=== PATIENT | female | born 1985 | race African-American/Black ===

== ENCOUNTER 2017-04-25 18:42 | Inpatient (IN) | payer OTHER ==
--- NOTE | 2017-04-25 19:57 | HP ---
Past Medical History - Admission History of Present Illness: 31 yo @ 40 4/7 wks by LMP consistent with first trimester ultrasound, EDC 04/21/2017) complicated by: 1. 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 Mild anemia - last CBC 02/21/17, 10.3/30.8 Patient presents with chief complaint of leakage of fluid at approximately 1545. She reports mild contractions, no vaginal bleeding. She was found to have + pooling and nitrazine positive. She endorses movement. History Source: Patient Limitations to Obtaining History: No Limitations - Past Medical History Cardiovascular: No: HTN Pulmonary: No: Asthma ...: 1 ...EDC by Sono: 04/21/17 Heme/Onc: Yes: Anemia Endocrine: Yes: Other (PCOS) - Past Surgical History Past Surgical History: Yes: Tonsillectomy Hx Myomectomy: No Hx Transabdominal Cerclage: No - Smoking History Have you smoked in the past 12 months: No - Alcohol/Substance Use Hx Alcohol Use: No History of Substance Use: reports: None - Social History History of Recent Travel: No Home Medications - Allergies Allergies/Adverse Reactions: Allergies Allergy/AdvReac Type Severity Reaction Status Date / Time No Known Allergies Allergy Verified 04/25/17 19:57 Family Disease History - Family Disease History Family History: Denies Review of Systems - Review of Systems Constitutional: reports: No Symptoms Neck: reports: No Symptoms Cardiovascular: reports: No Symptoms Respiratory: reports: No Symptoms Gastrointestinal: reports: No Symptoms Musculoskeletal: reports: No Symptoms Integumentary: reports: No Symptoms Neurological: reports: No Symptoms Endocrine: reports: No Symptoms Hematology/Lymphatic: reports: No Symptoms Psychiatric: reports: No Symptoms Physical Exam - Maternity Constitutional: Yes: Well Nourished, No Distress, Calm Neck: Yes: Supple Cardiovascular: Yes: Regular Rate and Rhythm Lungs: Clear to auscultation - Abdominal Exam/OB Number of Fetuses: Single Presentation: Vertex Contractions: Yes Regularity: Regular Intensity: Mild Heart Rate (range): 130 Category: I Accelerations: Non-Uniform Decelerations: None - Vaginal Exam/OB Vaginal Bleediing: No Speculum Exam: Yes Dilatation (cm): 3 Effacement (%): 70 Amniotic Membrane Status: Ruptured Nitrazine Test: Positive Amniotic Fluid: Yes: Clear Station: -2 - Physical Exam Psychiatric: Yes: Alert, Oriented Hemorrhage Risk Assessment - Risk Factors Medium Risk Factors: Yes: None High Risk Factors: Yes: None Risk Score: 1 Risk Level: Medium Risk Imaging - Results Ultrasound: Report Reviewed (04/21/17, EFW 3984g/8-12, (74%),BPP 04/10, LEONARD 12) Assessment/Plan 31 yo @ 40 wks, SROM 1. Admit to L&D 2. Consents reviewed and signed 3. GBS negative 4. Patient comfortable, will offer epidural on request 5. Reviewed currently SROM, mild contractions. Discussed possible augmentation of labor. Reviewed risks including uterine tachysystole, heart rate changes, failure, delivery. patient expressed understanding. Will continue expectant management.
[2017-04-25] MEDS ORDERED: BUTORPHANOL TARTRATE 1 MG/ML VIAL IVPB ONE (20:07)
[2017-04-25] MEDS ORDERED: PROMETHAZINE HCL 25 MG/1 ML VIAL IVPUSH ONE (20:07)
[2017-04-25] MEDS ORDERED: ELECTROLYTE-148 SOLN 1,000 ML IV SCH (20:15)
[2017-04-25 20:49] VITALS: BMI 30.4
[2017-04-25 21:01] LABS: BASOPHIL 0.3 % (0-2.0); MCH 31.9 pg (25.7-33.7); MEAN PLT VOLUME 8.8 fl (7.5-11.1); NEUTROPHILS 76.5 % (42.8-82.8); PLATELET COUNT 264 K/MM3 (134-434); RDW 14.8 % (11.6-15.6); WHITE BLOOD COUNT 10.9 K/mm3 (4.0-10.0)
[2017-04-25 21:23] LABS: INR 0.98 (0.82-1.09); PROTHROMBIN TIME (PATIENT) 10.8 SEC (9.98-11.88)
[2017-04-25 21:26] LABS: ACTIVATED PTT 29.6 SECONDS (26.9-34.4)
[2017-04-25 21:28] LABS: ANION GAP 12 (8-16); CALCIUM 9.1 mg/dL (8.5-10.1); CO2 23 mmol/L (21-32); CREATININE 0.6 mg/dL (0.55-1.02); GLUCOSE,RANDOM 97 mg/dL (74-106)
[2017-04-25 22:19] LABS: HIV 1 & 2 AB NEGATIVE; HIV 1 AGp24 NEGATIVE
[2017-04-26] MEDS ORDERED: OXYTOCIN 15 UNITS/ LR 250 ML 250 ML IVPB SCH (03:00)
[2017-04-26] MEDS ORDERED: FENTANYL/BUPIVACAINE/NS/PF - PCEA - 50 ML DISP.SYRIN EP SCH ×3 (05:30→10:29)
[2017-04-26] MEDS ORDERED: AMPICILLIN - 100 ML IVPB ONE (09:00)
[2017-04-26] MEDS ORDERED: ACETAMINOPHEN 325 MG TABLET (FP) PO ONE (09:00)
[2017-04-26] MEDS: ELECTROLYTE-148 SOLN 1,000 ML IV SCH ×2 (09:40→11:28)
--- NOTE | 2017-04-26 09:47 | PN ---
Ante-Partal Exam - Subjective Subjective: Reports pain not controlled with epidural s/p MORIN that improved with tylenol, reports mild neck soreness Vital Signs: Vital Signs Temperature 99.6 F 04/26/17 08:00 Pulse Rate 120 H 04/26/17 09:15 Respiratory Rate 20 04/26/17 09:15 Blood Pressure 138/74 04/26/17 09:15 O2 Sat by Pulse Oximetry (%) 98 04/26/17 09:15 Bleeding: No Headache: Yes Visual changes: No Right upper quadrant pain: No - Contractions Contractions: Yes Regularity: Regular Intensity: Moderate Monitor Mode: External - Exam during Labor Heart Rate: 140 Variability: Moderate Category: I Monitor Accelerations: Present Monitor Decelerations: None Exam: Vaginal Dilatation (cm): 5 Effacement (%): 100 Amniotic Membrane Status: Ruptured Amniotic Fluid: Clear Station: -1 - Intrapartum Hemorrhage Risk Medium Risk Factors: None High Risk Factors: None Risk Score: 0 Risk Level: Low Risk - Assessment/Plan Assessment/Plan: 31 yo @ 40+ wks, active labor 1. will continue augmentation with pitocin 2. Maternal tachycardia - mild temperature elevation, s/p rupture > 17 hours Will continue to monitor for signs of infection 3. GBS negative 4. Category I FHT 5. Will continue expectant management.
--- NOTE | 2017-04-26 10:43 | PN ---
Progress Note (short form) - Note Progress Note: Patient with persistent tachycardia, s/p 500cc fluid bolus, afebrile, BP and O2 sat 98% Discussed with anesthesia, not likely secondary to epidural placement Will order EKG Will consult cardiology
[2017-04-26] MEDS ORDERED: AMPICILLIN - 100 ML IVPB SCH (13:00)
--- NOTE | 2017-04-26 13:14 | PN ---
Progress Note (short form) - Note Progress Note: VE: FD/100%/+1 FHR: 150's Moderate variability, + accels, no desels TOCO: regular ctx Q 3min on Pitocin drip of 2mU/min Will turn off the epidural, since she has very little sensation She is known to have HSV 2, she has been on Valtrex since 35weeks and has no lesions
[2017-04-26] MEDS ORDERED: WITCH HAZEL 50% (TUCKS) 40 PAD/JAR PAD TP PRN (14:25)
[2017-04-26] MEDS ORDERED: BISACODYL 10 MG SUPP.RECT RC PRN (14:25)
[2017-04-26] MEDS ORDERED: BENZOCAINE 28 GM HEMORRHOIDAL OINTMENT TP PRN (14:25)
[2017-04-26] MEDS ORDERED: METHYLERGONOVINE MALEATE 0.2 MG/1 ML AMP IM PRN (14:25)
[2017-04-26] MEDS ORDERED: BENZOCAINE 20% 57 GM BOTTLE TP PRN (14:25)
[2017-04-26] MEDS ORDERED: ACETAMINOPHEN 325 MG TABLET (FP) PO PRN (14:25)
--- NOTE | 2017-04-26 14:25 | PN ---
Delivery - Delivery Vaginal Delivery: Spontaneous Type of Anesthesia: Epidural Episiotomy/Laceration: Periurethral Extnsion/lac, 1st degree Delivery, Single - Stages of Labor Date 1st Stage Initiatied: 04/25/17 Time 1st Stage Initiated: 19:00 Date 2nd Stage Initiated: 04/26/17 Time 2nd Stage Initiated: 13:00 Date of Delivery: 04/26/17 Time of Delivery: 13:52 Date Placenta Delivered: 04/26/17 Time Placenta Delivered: 13:55 Placenta: Yes: Spontaneous - Condition of Director Of Casework Department/Service Car Driver Present: No Gender: Male Weight: 8 lb 2 oz Position: OA - 1 Minute Total Score: 9 5 Minutes Total Score: 9 - Feeding Plan Initial Plan: Exclusive throughout hospitalization Benefits of Exclusively reinforced: Yes Remarks - Remarks Remarks: Uncomplicated delivery of head and shoulders, cord around the neck x 1, reduced Right periuretheral and right vaginal tear repaired with 2-0 Chromic
[2017-04-26] MEDS ORDERED: D5W-LR W/ 20 UNITS OXYTOCIN 1,000 ML IV SCH (14:30)
--- NOTE | 2017-04-26 14:40 | EKG ---
Test Reason : Blood Pressure : / mmHG Vent. Rate : 123 BPM Atrial Rate : 123 BPM P-R Int : 154 ms QRS Dur : 074 ms QT Int : 314 ms P-R-T Axes : 051 069 001 degrees QTc Int : 449 ms SINUS TACHYCARDIA Confirmed by STEPHEN PEREIRA MD ([id number]) on 04/26/2017 2:40:38 PM Referred By: Estrada MANTILLA Confirmed By:STEPHEN PEREIRA MD
[2017-04-26] MEDS: FERROUS SO4 325 MG TABLET (FP) PO SCH (17:07)
[2017-04-26] MEDS: ACETAMINOPHEN/CAFFEINE/BUTALBITAL 1 TAB PO PRN ×2 (18:30→23:04)
--- NOTE | 2017-04-26 21:32 | CON.CARD ---
Cardiology Consult (text) - Consultation Consultation Note: CC: tachycardia 31 y o with h/o pcos, mild anemia here for delivery, labor complicated by tachycardia. patient noted to be tachycardic since this morning after having received epidural. Patient was comfortable from the standpoint of pain/discomfort but notes she was anxious from sensation of the numbness traveling up her body. + sensation of heart racing, no dizziness, cp. EKG consistent with sinus tachycardia. Has vaginal delivery without complications. Epidural now removed. Tachycardia slightly better. patient currently comfortable and free of cp, sob, palps, dizziness. + fatigue s/p delivery. patient had uncomplicated . no recent new sob, orthopnea, pnd, le edema. denies recent f/c/s, cough, congestion, rashes, visual disturbances, n/v/d. + gerd symptoms during . pmhx/pshx: per hpi family hx: no h/o katia- cardiomyopathy social hx: no tob, etoh or illicits ros: per hpi Ambulatory Orders Vitamins (Sjr) - 1 tab PO DAILY 04/25/17 Ascorbic Acid/Ascorbate Sodium [Vitamin C 500 mg Wafer] 500 mg PO DAILY Ferrous Sulfate 325 mg PO DAILY 04/26/17 Current Medications Acetaminophen (Tylenol -) 650 mg PO Q3H PRN PRN Reason: PAIN Last Admin: 04/26/17 14:45 Dose: 650 mg Acetaminophen/Butalbital/Caffeine (Fioricet -) 2 tablet PO Q4H PRN Last Admin: 04/26/17 18:30 Dose: 2 tablet Benzocaine (Americaine Ointment -) 1 applic TP PRN PRN PRN Reason: PAIN Benzocaine (Americaine 20% Colton -) 1 spray TP PRN PRN PRN Reason: PAIN Bisacodyl (Dulcolax Suppository -) 10 mg RC PRN PRN PRN Reason: CONSTIPATION Fentanyl/Bupivacaine/Sodium Chlor (Bupivicaine 0.125%/Fentanyl 2mcg/Ml Pcea -) 50 ml EP ASDIR ARBEN PRN Reason: Protocol Ferrous Sulfate (Feosol -) 325 mg PO BIDWM ARBEN Last Admin: 04/26/17 17:07 Dose: 325 mg Parenteral Electrolytes (Plasma-Lyte 148 -) 1,000 mls @ 150 mls/hr IV ASDIR ARBEN Last Admin: 04/26/17 11:28 Dose: 150 mls/hr Dextrose/Lactated Ringer's (Pitocin 20 Units In D5-Lr -) 1,000 mls @ 125 mls/ hr IV ASDIR [facility] Stop: 04/26/17 22:29 Last Admin: 04/26/17 13:55 Dose: 125 mls/hr Ibuprofen (Motrin -) 600 mg PO Q4H PRN PRN Reason: PAIN Lidocaine HCl (Xylocaine 2% Jelly) 1 applic TP DAILY PRN Methylergonovine Maleate (Methergine Injection -) 0.2 mg IM Q4H PRN PRN Reason: EXCESSIVE BLEEDING (L&D) Multivit/Folic Acid/Iron ( Vitamins (Sjr) -) 1 tab PO DAILY ARBEN Senna/Docusate Sodium (Pericolace -) tablet PO HS PRN PRN Reason: CONSTIPATION Witch Cee/Glycerin (Tucks Pads -) 1 pad TP PRN PRN PRN Reason: PAIN Vital Signs - 24 hr 04/25/17 04/25/17 04/26/17 22:00 23:00 01:00 Temperature 99.3 F 98.3 F Pulse Rate 97 H 98 H 88 Respiratory 20 20 18 Rate Blood Pressure 126/72 129/75 116/80 O2 Sat by Pulse Oximetry (%) 04/26/17 04/26/17 04/26/17 03:00 05:00 05:30 Temperature 97.7 F 98.1 F Pulse Rate 87 68 95 H Respiratory 20 20 20 Rate Blood Pressure 120/77 117/68 112/82 O2 Sat by Pulse 100 Oximetry (%) 04/26/17 04/26/17 04/26/17 05:35 05:40 05:45 Temperature Pulse Rate 113 H 100 H 112 H Respiratory 20 20 20 Rate Blood Pressure 91/48 102/62 92/50 O2 Sat by Pulse Oximetry (%) 04/26/17 04/26/17 04/26/17 05:50 05:55 06:00 Temperature 98.1 F Pulse Rate 123 H 114 H Respiratory 18 20 Rate Blood Pressure 85/40 103/54 O2 Sat by Pulse Oximetry (%) 04/26/17 04/26/17 04/26/17 06:15 06:30 07:00 Temperature 98.3 F Pulse Rate 116 H 131 H 110 H Respiratory 20 20 20 Rate Blood Pressure 103/52 133/70 105/55 O2 Sat by Pulse Oximetry (%) 04/26/17 04/26/17 04/26/17 07:15 07:30 07:45 Temperature Pulse Rate 115 H 120 H 115 H Respiratory 20 20 20 Rate Blood Pressure 120/64 123/63 125/68 O2 Sat by Pulse Oximetry (%) 04/26/17 04/26/17 04/26/17 08:00 08:15 08:30 Temperature 99.6 F Pulse Rate 115 H 120 H 120 H Respiratory 20 20 20 Rate Blood Pressure 118/66 117/70 118/67 O2 Sat by Pulse Oximetry (%) 04/26/17 04/26/17 04/26/17 08:45 09:00 09:15 Temperature Pulse Rate 120 H 125 H 120 H Respiratory 20 20 20 Rate Blood Pressure 119/69 135/80 138/74 O2 Sat by Pulse 98 Oximetry (%) 04/26/17 04/26/17 04/26/17 09:20 09:25 09:30 Temperature Pulse Rate 120 H 130 H 125 H Respiratory 20 20 20 Rate Blood Pressure 130/76 128/75 128/98 O2 Sat by Pulse 98 99 97 Oximetry (%) 04/26/17 04/26/17 04/26/17 09:45 10:00 10:15 Temperature 98.6 F Pulse Rate 122 H 122 H 135 H Respiratory 20 20 20 Rate Blood Pressure 126/79 116/60 113/58 O2 Sat by Pulse 98 98 98 Oximetry (%) 04/26/17 04/26/17 04/26/17 10:30 10:45 11:00 Temperature Pulse Rate 120 H 130 H 120 H Respiratory 20 20 20 Rate Blood Pressure 135/69 116/62 109/59 O2 Sat by Pulse 99 99 100 Oximetry (%) 04/26/17 04/26/17 04/26/17 11:15 11:30 11:45 Temperature Pulse Rate 125 H 120 H 118 H Respiratory 20 20 20 Rate Blood Pressure 119/60 116/60 102/53 O2 Sat by Pulse 99 100 100 Oximetry (%) 04/26/17 04/26/17 04/26/17 12:00 12:15 12:30 Temperature 99.2 F Pulse Rate 125 H 120 H 130 H Respiratory 20 20 20 Rate Blood Pressure 119/65 121/66 123/71 O2 Sat by Pulse 100 100 99 Oximetry (%) 04/26/17 04/26/17 04/26/17 12:45 13:00 13:15 Temperature Pulse Rate 115 H 125 H 128 H Respiratory 20 20 20 Rate Blood Pressure 106/62 113/54 130/71 O2 Sat by Pulse 100 100 100 Oximetry (%) 04/26/17 04/26/17 04/26/17 14:15 14:30 14:45 Temperature Pulse Rate 120 H 117 H 112 H Respiratory 20 20 20 Rate Blood Pressure 112/56 123/67 125/71 O2 Sat by Pulse Oximetry (%) 04/26/17 04/26/17 04/26/17 15:00 15:15 15:30 Temperature Pulse Rate 109 H 101 H 104 H Respiratory 20 20 20 Rate Blood Pressure 119/67 126/66 115/62 O2 Sat by Pulse Oximetry (%) 04/26/17 04/26/17 04/26/17 16:15 18:16 19:49 Temperature 99.2 F 98.5 F 97.4 F L Pulse Rate 102 H 101 H 102 H Respiratory 20 20 20 Rate Blood Pressure 120/74 119/72 117/68 O2 Sat by Pulse Oximetry (%) Intake & Output 04/24/17 04/25/17 04/26/17 04/27/17 07:59 07:59 07:59 07:59 Intake Total 2100 1550 Output Total 2400 Balance 2100 -850 Weight 200 lb nad, calm jvd flat, neck supple ctab, nl effort rrr nl s1, s2 no mrg + bs soft nt nd ext without e/c/c + dp/pt no carotid bruits no jaundice, diaphoresis, aaox3] CBC, BMP 04/25/17 20:30 04/25/17 20:30 ekg: sinus tachycardia, non-specific inferolateral t wave flattening. 31 y o with h/o pcos, mild anemia here for delivery, labor complicated by tachycardia. tachycardia - EKG shows sinus tachycardia, no arrhtythmias. Monitor for improvement s/p epidural removal. - currently asx. - check lytes in the morning. - If tachycardia persists tomorrow, will pursue further cardiac evaluation. However, if improves, no further work up needed.
[2017-04-26] MEDS: LIDOCAINE HCL 2% JELLY (30 ML/TUBE) TP PRN (23:02)
[2017-04-27] MEDS: ACETAMINOPHEN/CAFFEINE/BUTALBITAL 1 TAB PO PRN ×4 (02:54→21:40)
[2017-04-27] MEDS: IBUPROFEN 600 MG TABLET (FP) PO PRN ×2 (05:13→22:53)
[2017-04-27] MEDS: FERROUS SO4 325 MG TABLET (FP) PO SCH ×2 (07:56→17:28)
[2017-04-27 08:42] LABS: BASOPHIL 0.1 % (0-2.0); EOSINOPHIL 0.3 % (0-4.5); MCH 31.4 pg (25.7-33.7); MCHC 33.2 g/dl (32.0-36.0); MEAN CELL VOLUME 94.4 fl (80-96); MEAN PLT VOLUME 8.2 fl (7.5-11.1); NEUTROPHILS 83.5 % (42.8-82.8); PLATELET COUNT 236 K/MM3 (134-434); RDW 14.9 % (11.6-15.6); WHITE BLOOD COUNT 18.2 K/mm3 (4.0-10.0)
--- NOTE | 2017-04-27 08:48 | PN ---
Progress Note (short form) - Note Progress Note: ppd 1 c/o head ache, no active vaginal bleeding, CBC, BMP 04/27/17 08:00 Last Vital Signs Temp Pulse Resp BP Pulse Ox 98.2 F 84 20 118/69 100 04/27/17 06:22 04/27/17 06:22 04/27/17 06:22 04/27/17 06:22 04/26/17 13:15 abdomen soft, uterus firm, non tender lochia mild no calf tenderness impression ppd , headache. r/o spinal headache plan anesthesia consult, iv hydration,
[2017-04-27 09:02] LABS: ANION GAP 9 (8-16); CALCIUM 8.8 mg/dL (8.5-10.1); CO2 23 mmol/L (21-32); CREATININE 0.7 mg/dL (0.55-1.02); GLUCOSE,RANDOM 100 mg/dL (74-106); MAGNESIUM 1.6 mg/dL (1.8-2.4)
[2017-04-27] MEDS: PRENATAL VITAMINS W/ FOLIC ACID TABLET (FP) PO SCH (10:03)
--- NOTE | 2017-04-27 13:13 | PN ---
Progress Note (short form) - Note Progress Note: Patient had a wet tap yesterday while doing epidural for labor.She has developed headache with neck stiffness.Pain score 6-7/10.So did epidural blood patch with 26ml of patients own bloob drawn from R [facility] under sterile coditions.Patient stable and comfortable.Headache is relieved.
[2017-04-27] MEDS ORDERED: MAGNESIUM OXIDE 400 MG TABLET (FP) PO ONE (13:44)
[2017-04-27] MEDS: LIDOCAINE HCL 2% JELLY (30 ML/TUBE) TP PRN (15:51)
[2017-04-27] MEDS ORDERED: SENNOSIDES/DOCUSATE COMBO (SENNA PLUS) TABLET (UD) PO PRN (22:00)
--- NOTE | 2017-04-28 01:31 | PN ---
Post Progress Note - Subjective Subjective: s/p spinal patch Reports no headaches, fevers or chills. Reports tolerating oral intake without nausea or vomiting. Ambulating without dizziness. Denies fevers or chills. Pain well controlled with oral pain medication. without difficulty. Passing flatus. Post Day: 2 Type of Delivery: Vital Signs: Vital Signs Temperature 98.1 F 04/27/17 21:51 Pulse Rate 91 H 04/27/17 21:51 Respiratory Rate 20 04/27/17 21:51 Blood Pressure 113/70 04/27/17 21:51 O2 Sat by Pulse Oximetry (%) 100 04/26/17 13:15 Breast Exam: Yes: Engorged Uterus: Yes: Fundus Firm Abdomen/GI: Yes: Abdomen soft, Passing flatus, Tolerating PO. No: Tender Lochia: Yes: Serosa Lochia, amount: Small Extremities: Yes: Calves non-tender. No: Edema Activity: Ambulating - Labs Labs: CBC WBC 18.2 K/mm3 (4.0-10.0) H D 04/27/17 08:00 RBC 3.17 M/mm3 (3.60-5.2) L 04/27/17 08:00 Hgb 9.9 GM/dL (10.7-15.3) L 04/27/17 08:00 Hct 29.9 % (32.4-45.2) L 04/27/17 08:00 MCV 94.4 fl (80-96) 04/27/17 08:00 MCH 31.4 pg (25.7-33.7) 04/27/17 08:00 MCHC 33.2 g/dl (32.0-36.0) 04/27/17 08:00 RDW 14.9 % (11.6-15.6) 04/27/17 08:00 Plt Count 236 K/MM3 (134-434) 04/27/17 08:00 MPV 8.2 fl (7.5-11.1) 04/27/17 08:00 Neutrophils % 83.5 % (42.8-82.8) H 04/27/17 08:00 Lymphocytes % 7.5 % (8-40) L D 04/27/17 08:00 Monocytes % 8.6 % (3.8-10.2) 04/27/17 08:00 Eosinophils % 0.3 % (0-4.5) 04/27/17 08:00 Basophils % 0.1 % (0-2.0) 04/27/17 08:00 Assessment/Plan 31 yo PPD # 2 s/p , afebrile, vital signs stable, doing well 1. Patient stable for discharge home today. 2. Patient encouraged to contact MD for: - Severe pain not controlled by oral pain medication - Fevers or chills - Nausea or vomiting, intolerance of oral intake 3. Patient to follow up in office in 4-6 weeks for visit
[2017-04-28 08:24] VITALS: BP 135/73; PULSE 94; TEMP 98.3
[2017-04-28] MEDS: FERROUS SO4 325 MG TABLET (FP) PO SCH (08:58)
[2017-04-28] MEDS: IBUPROFEN 600 MG TABLET (FP) PO PRN (09:59)
[2017-04-28] MEDS: PRENATAL VITAMINS W/ FOLIC ACID TABLET (FP) PO SCH (09:59)
[2017-04-28] MEDS ORDERED: MAGNESIUM OXIDE 400 MG TABLET (FP) PO ONE (10:00)
--- NOTE | 2017-04-28 10:57 | DS ---
Physical Exam-MEDICAID BILLER Vital Signs: Vital Signs Temperature 98.3 F 04/28/17 08:22 Pulse Rate 94 H 04/28/17 08:22 Respiratory Rate 20 04/28/17 08:22 Blood Pressure 135/73 04/28/17 08:22 O2 Sat by Pulse Oximetry (%) 100 04/26/17 13:15 Labs: CBC, BMP 04/27/17 08:00 04/27/17 08:00 Delivery - Delivery Vaginal Delivery: Spontaneous Type of Anesthesia: Epidural Episiotomy/Laceration: Periurethral Extnsion/lac, 1st degree Delivery, Single - Stages of Labor Date 1st Stage Initiatied: 04/25/17 Time 1st Stage Initiated: 19:00 Date 2nd Stage Initiated: 04/26/17 Time 2nd Stage Initiated: 13:00 Date of Delivery: 04/26/17 Time of Delivery: 13:52 Time Placenta Delivered: 13:55 Placenta: Yes: Spontaneous - Condition of Infant Mill 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 Present: No Infant Gender: Male Weight: 8 lb 2 oz Position: OA Total Hours ROM (Hrs/Mins): 22/55 - 1 Minute Total Score: 9 5 Minutes Total Score: 9 - [place] Feeding Plan Initial Plan: Exclusive throughout hospitalization Benefits of Exclusively reinforced: Yes Discharge Summary Current Active Problems Vaginal delivery (Acute) Procedures: Principal: vaginal delivery Other Procedures: blood patch Hospital Course: patient admitted HD #1 PROM, augmentation of labor with pitocin Delivered HD #2 Intrapartum noted to have tachycardia, s/p cardiology consult, resolved after delivery PPD#1 had headache, s/p blood patch, improvement on PPD #2 Patient remained afebrile, vital signs stable, for discharge home PPD #2 Condition: Fair - Instructions Diet, Activity, Other Instructions: Physical activity Resume your normal everyday activity as tolerated no heavy lifting or exercise until seen by your surgeon. You may walk unlimited james of and climb stairs. You may resume driving the car when you feel safe and comfortable behind the wheel. No sexual activity as instructed. Diet There are no dietary restrictions. Eat healthy, high-fiber foods. Drink 6 to 8 glasses of liquid each day. This will assist in keeping your bowels are regular. Pain management You may take Tylenol or acetaminophen or Ibuprofen (for example, Motrin, Advil etc.) from my pain prescription medication is ordered should be taken as prescribed for moderate to severe pain. Call MD for any of the following: Severe pain not relieved by medication Fever of 101 or higher Excessive bleeding or drainage on dressing Inability to urinate return to office in 6 weeks. call for appointment. Referrals: Rosibel Canada MD [Staff Physician] - Disposition: HOME - Home Medications Comprehensive Discharge Medication List: Ambulatory Orders Vitamins (Sjr) - 1 tab PO DAILY 04/25/17 Ascorbic Acid/Ascorbate Sodium [Vitamin C 500 mg Wafer] 500 mg PO DAILY Ferrous Sulfate 325 mg PO DAILY 04/26/17 Lidocaine 5% Top. Ointment [Xylocaine 5% Top. Ointment -] 1 applic TP DAILY #1 tube 04/27/17 Ibuprofen [Motrin -] 600 mg PO QID PRN #60 tablet MDD 4 04/28/17
== END 2017-04-28 11:40 | disposition home or self-care (01) | DRG 774 ==
LOC: JDEL 18:42 → JLDR 19:20 → J3W 04-26 16:15
PROVIDERS: ADMIT Obstetrics & Gynecology; ATTEND Obstetrics & Gynecology
PROC: 4A1HXCZ Monitoring of Products of Conception, Cardiac Rate, External Approach (ICD-10-PCS; 2017-04-25)
PROC: 10E0XZZ Delivery of Products of Conception, External Approach (ICD-10-PCS; principal; 2017-04-26)
PROC: 0HQ9XZZ Repair Perineum Skin, External Approach (ICD-10-PCS; 2017-04-26)
PROC: 3E0R3CZ (ICD-10-PCS; 2017-04-26)
DX: O48.0 Post-term pregnancy (principal); O98.52 Other viral diseases complicating childbirth; O99.02 Anemia complicating childbirth; D64.9 Anemia, unspecified; B00.9 Herpesviral infection, unspecified; O75.89 Other specified complications of labor and delivery; R00.0 Tachycardia, unspecified; O70.0 First degree perineal laceration during delivery; Z3A.40 40 weeks gestation of pregnancy; Z37.0 Single live birth
CPT/HCPCS: 36415; 59409; 80048; 83735; 85025; 85610; 85730; 86593; 86850; 86900; 86901; 87389; 93005; 93010

== ENCOUNTER 2018-12-02 08:25 | Inpatient (IN) | payer OTHER ==
[2018-12-02 09:22] LABS: BASO % 0.2 % (0-2.0); EOS % 1.1 % (0-4.5); HEMATOCRIT 30.2 % (32.4-45.2); LYMPH % 17.2 % (8-40); MCH 30.3 pg (25.7-33.7); MCHC 33.1 g/dl (32.0-36.0); MEAN CELL VOLUME 91.7 fl (80-96); MONO % 9.8 % (3.8-10.2); NEUT % 71.7 % (42.8-82.8); PLATELET COUNT 214 K/MM3 (134-434); RBC 3.29 M/mm3 (3.60-5.2); RDW 17.1 % (11.6-15.6); WHITE BLOOD COUNT 6.4 K/mm3 (4.0-10.0)
[2018-12-02 09:35] LABS: INR 0.96 (0.83-1.09); PROTHROMBIN TIME (PATIENT) 11.3 SEC (9.7-13.0)
[2018-12-02 09:38] LABS: ACTIVATED PTT 27.5 SECONDS (25.2-36.5)
[2018-12-02 09:41] VITALS: BMI 29.9
[2018-12-02 09:49] LABS: ANION GAP 9 MMOL/L (8-16); BLOOD UREA NITROGEN 9 mg/dL (7-18); CALCIUM 8.5 mg/dL (8.5-10.1); CHLORIDE 106 mmol/L (98-107); CO2 22 mmol/L (21-32); CREATININE 0.6 mg/dL (0.55-1.3); GLUCOSE,RANDOM 80 mg/dL (74-106); POTASSIUM 3.9 mmol/L (3.5-5.1); SODIUM 137 mmol/L (136-145)
[2018-12-02] MEDS ORDERED: MISOPROSTOL 100 MCG TABLET PV ONE ×3 (10:00→17:00)
--- NOTE | 2018-12-02 10:21 | HP ---
Past Medical History - Primary Care Physician PCP:: Rosibel Canada - Admission Chief Complaint: 32yo P1 with at EGA 40 2/7wks admitted for labor induction. History of Present Illness: Pt is not inlabor. complictaed by: 1. Hx PCOS 2. Hx HSV-- now on Valtrex for suppression; no current/active outbreaks 3. Anemia-- s/p iron infucions; current hct 30% 4. 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: Alzheimer's, CVA, Dementia, Migraine, Multiple Sclerosis, Peripheral Neuropathy, Parkinson's, Seizure, Syncope, TIA, Vertigo, Other Cardiovascular: No: AFIB, Aneurysm, Aortic Insufficiency, Aortic Stenosis, CAD, CHF, Deep Vein Thrombosis, HTN, Hyperlipdemia, NV, Mitral Insufficiency, Mitral Stenosis, Murmur, Pulmonary Hypertension, Other Pulmonary: No: Asthma, Bronchitis, Cancer, COPD, O2 Dependent, Pneumonia, Previously Intubated, Pulmonary Embolus, Pulmonary Fibrosis, Sleep Apnea, Other Gastrointestinal: No: Ascites, Cancer, Constipation, Crohn's Disease, Diverticulitis, Diverticulosis, Esophageal Varices, Gastritis, GERD, GI Bleed, Hemorrhoids, Hiatal Hernia, Inflamatory Bowel Disease, Irritable Bowel Disease, Pancreatitis, Peptic Ulcer Disease, Ulcerative Colitis, Other Hepatobiliary: No: Cirrhosis, Cholelithiasis, Cholecystitis, Choledocholithiasis , Hepatitis A, Hepatitis B, Hepatitis C, Other Renal/: No: Renal Failure, Renal Inusuff, BPH, Cancer, Hematuria, Hemodialysis , Neurogenic Bladder, Renal Calculi, UTI, Other Reproductive: No: Ectopic , Endometriosis, Fibroids, PID, Polycystic Ovary Syndrome, Postmenopausal, Other ...: 2 ...Para: 1 ( x 1) ...Term: 1 ...: 0 ...Spon : 0 ...Induced : 0 ...Multiple Gestation: 0 ... Weeks Gestation by Dates: 40.2 ...EDC by Sono: 11/30/18 Heme/Onc: Yes: Anemia Infectious Disease: No: AIDS, C-Diff, Herpes Zoster, HIV, MRSA, STD's, Tuberculosis, VREF, Other Psych: No: Addictions, Anxiety, Bipolar, Depression, Panic, Psychosis, Schizophrenia, Other Musculoskeletal: No: Bursitis, Chronic low back pain, Hemiparesis, Hemiplegia, Osteoarthritis, Paraplegia, Other Rheumatology: No: Fibromyalgia, Gout, Lupus, Rheumatoid Arthritis, Sarcoidosis, Vasculitis, Other ENT: No: Allergic Rhinitis, Sinusitis, Other Endocrine: Yes: Other (PCOS). 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 Ointment [Xylocaine 5% Top. Ointment -] 1 applic TP DAILY #1 tube 04/27/17 Ibuprofen [Motrin -] 600 mg PO QID PRN #60 tablet MDD 4 04/28/17 Family Disease History - Family Disease History Family History: Unremarkable Review of Systems - Review of Systems Constitutional: reports: No Symptoms Eyes: reports: No Symptoms HENT: reports: No Symptoms Neck: reports: No Symptoms Cardiovascular: reports: No Symptoms Respiratory: reports: No Symptoms Gastrointestinal: reports: No Symptoms Genitourinary: reports: No Symptoms Breasts: reports: No Symptoms Reported Musculoskeletal: reports: No Symptoms Integumentary: reports: No Symptoms Neurological: reports: No Symptoms Endocrine: reports: No Symptoms Hematology/Lymphatic: reports: No Symptoms Psychiatric: reports: No Symptoms Pain Intensity: 0 Physical Exam - Maternity Vital Signs: Vital Signs Temperature 98.0 F 12/02/18 08:25 Pulse Rate 86 12/02/18 08:25 Respiratory Rate 20 12/02/18 08:25 Blood Pressure 123/71 12/02/18 08:25 O2 Sat by Pulse Oximetry (%) Constitutional: Yes: Well Nourished, No Distress, Calm Eyes: Yes: WNL, Conjunctiva Clear HENT: Yes: WNL, Atraumatic, Normocephalic Neck: Yes: WNL, Supple, Trachea Midline Cardiovascular: Yes: WNL, Regular Rate and Rhythm Lungs: Clear to auscultation, Normal air movement - Abdominal Exam/OB Fundal Height: 40 Number of Fetuses: Single Presentation: Vertex Contractions: Yes Regularity: Irregular (rare) Intensity: Unaware Monitor Mode: External Heart Rate (range): 135 Heart Rate Location: Midline Category: I Accelerations: Uniform Decelerations: None - Vaginal Exam/OB Vaginal Bleediing: No Speculum Exam: No Dilatation (cm): 2 Effacement (%): 0 Amniotic Membrane Status: Intact Presentation: Vertex/Position Station: -3 (Adequate gynecoid pelvimetry, no HSV lesions. EFW ~ 3300 g by Isaias's maneuvers.) - Physical Exam Musculoskeletal: Yes: WNL Extremities: Yes: WNL Edema: No Integumentary: Yes: WNL Deep Tendon Reflex Grade: Normal +2 ...Motor Strength: WNL Psychiatric: Yes: WNL, Alert, Oriented - Labs Lab Results: CBC, BMP 12/02/18 08:55 12/02/18 08:55 Hemorrhage Risk Assessment - Risk Factors Medium Risk Factors: Yes: None High Risk Factors: Yes: None Risk Score: 1 Risk Level: Medium Risk Imaging - Results Ultrasound: Report Reviewed Assessment/Plan 32yo P1 with at EGA 40 2/7wks admitted for labor induction. Pt is not in labor. Fetus with Category I tracing. Adequate gynecoid pelvimetry on exam. No contraindications to labor indx or vaginal delivery. We had long discussion re: risks, benefits, and alternatives of labor induction. I explained the options of expectant management awaiting spontaneous labor, induction of labor, and elective section. The risks of uterine tachysystole, distress , uterine rupture, need for emergency C/S, hemorrhage, infection, scarring, etc. were discussed. We also discussed the risks of meconium aspiration, shoulder dystocia, and anesthesia options. The pt was also seen, evaluared, and examined today by Dr. Canada. The pt requested to proceed with induction. We discussed the alternative methods of induction with Cervidil, Cytotec, Folley ballon, and pitocin. The pt prefers Cytotec followed by pitocin, if needed. The Cytotec was inserted by Dr. Canada at 10:10am.
[2018-12-02] MEDS ORDERED: AMPICILLIN SODIUM 2 GM VIAL ONE (19:03)
[2018-12-02] MEDS ORDERED: SODIUM CHLORIDE 100 ML IVPB ONE ×2 (19:04→22:45)
[2018-12-02] MEDS ORDERED: AMPICILLIN - 2 GM in SODIUM CHLORIDE 100 ML IVPB ONE (19:12)
[2018-12-02] MEDS ORDERED: OXYTOCIN 30 UNITS in 0.9% NS 30 UNIT/500 ML INFUS.BAG IVPB SCH ×2 (19:15→20:45)
[2018-12-02] MEDS ORDERED: OXYTOCIN 30 UNITS in 0.9% NS 30 UNIT/500 ML INFUS.BAG IVPB ONE (19:31)
[2018-12-02] MEDS ORDERED: D5W-LR W/ 20 UNITS OXYTOCIN 20 UNIT/1,000 ML INFUS.BAG IV SCH (19:45)
--- NOTE | 2018-12-02 20:58 | PN ---
Progress Note, Labor Vaginal Exam #1 Labor Exam Date: 12/02/18 Labor Exam Time: 19:00 Heart Rate (range): 140s Dilatation: 4cm Effacement (%): 50% Amniotic Membrane Status: Intact Presentation: Vertex/Position Station: -3 Remarks: Category 1 FHR Adequate cervical dilation to start Pitocin Start GBS prophylaxis Epidural as per patient request
[2018-12-02] MEDS: ELECTROLYTE-148 SOLN 1,000 ML IV SCH (21:30)
[2018-12-02] MEDS ORDERED: DEXTROSE 5%-LACTATED RINGERS 1,000 ML IV SCH (22:00)
[2018-12-02] MEDS ORDERED: FENTANYL/BUPIVACAINE/NS/PF - PCEA - 50 ML DISP.SYRIN EP ONE (22:16)
[2018-12-02] MEDS ORDERED: OXYTOCIN 20 UNITS in 0.9% NS 20 UNIT/1,000 ML INFUS.BAG IV ONE (22:16)
[2018-12-02] MEDS ORDERED: LIDOCAINE HCL 1% PRESERVATIVE FREE - 30ML VIAL ONE (22:17)
[2018-12-02] MEDS ORDERED: AMPICILLIN SODIUM 1 GM VIAL ONE (22:44)
[2018-12-02] MEDS ORDERED: NALOXONE HCL 0.4 MG/ML VIAL IVPUSH PRN (22:51)
[2018-12-02] MEDS ORDERED: BUPIVACAINE HCL/PF 0.25% (2.5MG/ML) 10 ML VIAL ONE (22:57)
[2018-12-02] MEDS ORDERED: LIDO 2%/EPI 1:200000 PRESRVFRE (20 ML SDVIAL) ONE (22:58)
[2018-12-02] MEDS: AMPICILLIN - 1 GM in SODIUM CHLORIDE 100 ML IVPB SCH (23:00)
[2018-12-02] MEDS: FENTANYL/BUPIVACAINE/NS/PF - PCEA - 50 ML DISP.SYRIN EP SCH (23:20)
[2018-12-03] MEDS ORDERED: AMPICILLIN SODIUM 1 GM VIAL ONE (02:37)
[2018-12-03] MEDS ORDERED: SODIUM CHLORIDE 100 ML IVPB ONE (02:37)
[2018-12-03] MEDS: AMPICILLIN - 1 GM in SODIUM CHLORIDE 100 ML IVPB SCH ×2 (03:00→08:15)
--- NOTE | 2018-12-03 03:37 | PN ---
Progress Note, Labor Vaginal Exam #2 Labor Exam Date: 12/03/18 Labor Exam Time: 03:00 Heart Rate (range): 135, Category 1 Dilatation: 6 Effacement (%): 75% Amniotic Membrane Status: Intact Presentation: Vertex/Position Station: -3 Remarks: AROM after 3 doses of Ampicillin clear fluid Exellent MF status
[2018-12-03] MEDS ORDERED: FENTANYL/BUPIVACAINE/NS/PF - PCEA - 50 ML DISP.SYRIN EP ONE (03:42)
[2018-12-03] MEDS: ELECTROLYTE-148 SOLN 1,000 ML IV SCH (04:00)
--- NOTE | 2018-12-03 05:05 | PN ---
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
[2018-12-03] MEDS ORDERED: OXYTOCIN 10 UNITS/ML VIAL ONE (05:49)
[2018-12-03] MEDS ORDERED: OXYTOCIN 10 UNITS/ML VIAL IV ONE (05:55)
[2018-12-03] MEDS ORDERED: METHYLERGONOVINE MALEATE 0.2 MG/1 ML AMP IM PRN (06:52)
[2018-12-03] MEDS ORDERED: BENZOCAINE 28 GM HEMORRHOIDAL OINTMENT TP PRN (06:52)
[2018-12-03] MEDS ORDERED: BISACODYL 10 MG SUPP.RECT RC PRN (06:52)
[2018-12-03] MEDS ORDERED: WITCH HAZEL 50% (TUCKS) 40 PAD/JAR PAD TP PRN (06:52)
[2018-12-03] MEDS ORDERED: BENZOCAINE 20% 57 GM BOTTLE TP PRN (06:52)
[2018-12-03] MEDS ORDERED: OXYTOCIN 20 UNITS in 0.9% NS 20 UNIT/1,000 ML INFUS.BAG IV SCH (07:30)
[2018-12-03] MEDS: PRENATAL VITAMINS W/ FOLIC ACID TABLET (FP) PO SCH (10:17)
[2018-12-03] MEDS: FERROUS SO4 325 MG TABLET (FP) PO SCH ×2 (10:19→21:15)
[2018-12-04] MEDS: IBUPROFEN 600 MG TABLET (FP) PO PRN ×3 (04:37→18:30)
[2018-12-04] MEDS: ACETAMINOPHEN 325 MG TABLET (FP) PO PRN ×3 (04:37→18:31)
[2018-12-04] MEDS: FENTANYL/BUPIVACAINE/NS/PF - PCEA - 50 ML DISP.SYRIN EP SCH (07:19)
--- NOTE | 2018-12-04 08:18 | PN ---
Post Progress Note - Subjective Subjective: Patient without acute complaints. Reports tolerating oral intake without nausea or vomiting. Ambulating without dizziness. Denies fevers or chills. Pain well controlled with oral pain medication. Pumping/breast feeding without issue. Passing flatus, no BM. Post Day: 1 Type of Delivery: Vital Signs: Vital Signs Temperature 98.3 F 12/03/18 20:52 Pulse Rate 80 12/03/18 20:52 Respiratory Rate 20 12/03/18 20:52 Blood Pressure 116/70 12/03/18 20:52 O2 Sat by Pulse Oximetry (%) 97 12/03/18 04:30 Breast Exam: Yes: Soft Uterus: Yes: Fundus Firm, Fundus below umbilicus, Non-tender Abdomen/GI: Yes: Abdomen soft, Passing flatus, Tolerating PO Lochia: Yes: Rubra Lochia, amount: Small Extremities: Yes: Calves non-tender, Edema (trace) Perineum: Yes: Laceration (repair intact) Activity: Ambulating - Labs Labs: CBC WBC 6.4 K/mm3 (4.0-10.0) 12/02/18 08:55 RBC 3.29 M/mm3 (3.60-5.2) L 12/02/18 08:55 Hgb 10.0 GM/dL (10.7-15.3) L 12/02/18 08:55 Hct 30.2 % (32.4-45.2) L 12/02/18 08:55 MCV 91.7 fl (80-96) 12/02/18 08:55 MCH 30.3 pg (25.7-33.7) 12/02/18 08:55 MCHC 33.1 g/dl (32.0-36.0) 12/02/18 08:55 RDW 17.1 % (11.6-15.6) H 12/02/18 08:55 Plt Count 214 K/MM3 (134-434) 12/02/18 08:55 MPV 9.0 fl (7.5-11.1) 12/02/18 08:55 Absolute Neuts (auto) 4.6 K/mm3 (1.5-8.0) 12/02/18 08:55 Neutrophils % 71.7 % (42.8-82.8) 12/02/18 08:55 Lymphocytes % 17.2 % (8-40) D 12/02/18 08:55 Monocytes % 9.8 % (3.8-10.2) 12/02/18 08:55 Eosinophils % 1.1 % (0-4.5) D 12/02/18 08:55 Basophils % 0.2 % (0-2.0) 12/02/18 08:55 Nucleated RBC % 0 % (0-0) 12/02/18 08:55 Assessment/Plan 32yo s/p , doing well stable, afebrile. Asymptomatic for anemia. care instructions reviewed. Continue routine care. Ambulation encouraged Discharge instruction reviewed.
--- NOTE | 2018-12-04 08:21 | DS ---
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: Vital Signs Temperature 98.3 F 12/03/18 20:52 Pulse Rate 80 12/03/18 20:52 Respiratory Rate 20 12/03/18 20:52 Blood Pressure 116/70 12/03/18 20:52 O2 Sat by Pulse Oximetry (%) 97 12/03/18 04:30 Constitutional: Yes: Well Nourished, No Distress, Calm Eyes: Yes: WNL, Conjunctiva Clear HENT: Yes: WNL, Atraumatic, Normocephalic Neck: Yes: WNL, Supple, Trachea Midline Cardiovascular: Yes: WNL, Regular Rate and Rhythm Respiratory: Yes: WNL, Regular, CTA Bilaterally Gastrointestinal: Yes: WNL, Normal Bowel Sounds, Soft ...Rectal Exam: Yes: Deferred Renal/: Yes: WNL Internal Exam Deferred: Yes ....Post : Yes: Uterus firm, Uterus non-tender, Slight lochia rubra Breast(s): Yes: WNL Musculoskeletal: Yes: WNL Extremities: Yes: WNL Edema: Yes Edema: LLE: Trace, RLE: Trace Integumentary: Yes: WNL Neurological: Yes: WNL, Alert, Oriented ...Motor Strength: WNL Psychiatric: Yes: WNL, Alert, Oriented Labs: CBC, BMP 12/02/18 08:55 Delivery - Delivery Vaginal Delivery: No Problems, Spontaneous Type of Anesthesia: Local, Epidural Episiotomy/Laceration: 1st degree EBL (cc): 300 Delivery, Single - Stages of Labor Date 1st Stage Initiatied: 12/02/18 Time 1st Stage Initiated: 22:00 Date 2nd Stage Initiated: 12/03/18 Time 2nd Stage Initiated: 04:25 Date of Delivery: 12/03/18 Time of Delivery: 04:34 Time Placenta Delivered: 04:40 Placenta: Yes: Spontaneous, Normal Configuration - 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 You may walk unlimited james of and climb stairs. You may resume driving the car when you feel safe and comfortable behind the wheel. No sexual activity as instructed. Wound care If you have a bandage, leave it on, and keep dry for 48-72 hours. After that time discard the outer bandage. If they are tapes on the skin under the out of bandage leave them in place. They will peel off in the next 7 to 10 days. Do Not Peel them off. You may shower the day after surgery. If there are tapes present on the skin, you may shower over them. Diet There are no dietary restrictions. Eat healthy, high-fiber foods. Drink 6 to 8 glasses of liquid each day. This will assist in keeping your bowels are regular. Pain management You may take Tylenol or acetaminophen or Ibuprofen (for example, Motrin, Advil etc.) from my pain prescription medication is ordered should be taken as prescribed for moderate to severe pain. Call MD for any of the following: Severe pain not relieved by medication Fever of 101 or higher Excessive bleeding or drainage on dressing Inability to urinate Referrals: Rosibel Canada MD [Staff Physician] - Disposition: HOME - Home Medications Comprehensive Discharge Medication List: Ambulatory Orders Vitamins (Sjr) - 1 tab PO DAILY 04/25/17 Ascorbic Acid/Ascorbate Sodium [Vitamin C 500 mg Wafer] 500 mg PO DAILY Ferrous Sulfate 325 mg PO DAILY 04/26/17 Lidocaine 5% Top. Ointment [Xylocaine 5% Top. Ointment -] 1 applic TP DAILY #1 tube 04/27/17 Ibuprofen [Motrin -] 600 mg PO QID PRN #60 tablet MDD 4 04/28/17
[2018-12-04 08:23] LABS: BASO % 0.4 % (0-2.0); EOS % 1.4 % (0-4.5); HEMATOCRIT 26.4 % (32.4-45.2); HEMOGLOBIN 8.9 GM/dL (10.7-15.3); LYMPH % 17.6 % (8-40); MCHC 33.6 g/dl (32.0-36.0); MEAN CELL VOLUME 92.4 fl (80-96); MEAN PLT VOLUME 8.6 fl (7.5-11.1); MONO % 8.7 % (3.8-10.2); NEUT % 71.9 % (42.8-82.8); PLATELET COUNT 202 K/MM3 (134-434); RBC 2.86 M/mm3 (3.60-5.2); RDW 16.9 % (11.6-15.6); WHITE BLOOD COUNT 8.6 K/mm3 (4.0-10.0)
[2018-12-04] MEDS: PRENATAL VITAMINS W/ FOLIC ACID TABLET (FP) PO SCH (09:27)
[2018-12-04] MEDS: FERROUS SO4 325 MG TABLET (FP) PO SCH ×2 (09:27→21:23)
[2018-12-04] MEDS ORDERED: SENNOSIDES/DOCUSATE COMBO (SENNA PLUS) TABLET (UD) PO PRN (22:00)
[2018-12-04] MEDS ORDERED: diphenhydrAMINE HCL 25 MG CAPSULE (FP) PO PRN (22:30)
[2018-12-05] MEDS: IBUPROFEN 600 MG TABLET (FP) PO PRN (08:11)
[2018-12-05] MEDS: ACETAMINOPHEN 325 MG TABLET (FP) PO PRN (08:12)
--- NOTE | 2018-12-05 08:15 | PN ---
Post Progress Note - Subjective Subjective: Patient without acute complaints. Reports tolerating oral intake without nausea or vomiting. Ambulating without dizziness. Denies fevers or chills. Pain well controlled with oral pain medication. without difficulty. Passing flatus. Post Day: 2 Type of Delivery: Vital Signs: Vital Signs Temperature 98.1 F 12/04/18 21:22 Pulse Rate 75 12/04/18 21:22 Respiratory Rate 20 12/04/18 21:22 Blood Pressure 117/64 12/04/18 21:22 O2 Sat by Pulse Oximetry (%) 97 12/03/18 04:30 Breast Exam: Yes: Soft Uterus: Yes: Fundus Firm, Fundus below umbilicus Abdomen/GI: Yes: Abdomen soft, Passing flatus, Tolerating PO. No: Abdominal Distention, Tender Lochia: Yes: Serosa Lochia, amount: Small Extremities: Yes: Calves non-tender. No: Edema Activity: Ambulating - Labs Labs: CBC WBC 8.6 K/mm3 (4.0-10.0) 12/04/18 07:57 RBC 2.86 M/mm3 (3.60-5.2) L 12/04/18 07:57 Hgb 8.9 GM/dL (10.7-15.3) L 12/04/18 07:57 Hct 26.4 % (32.4-45.2) L 12/04/18 07:57 MCV 92.4 fl (80-96) 12/04/18 07:57 MCH 31.0 pg (25.7-33.7) 12/04/18 07:57 MCHC 33.6 g/dl (32.0-36.0) 12/04/18 07:57 RDW 16.9 % (11.6-15.6) H 12/04/18 07:57 Plt Count 202 K/MM3 (134-434) 12/04/18 07:57 MPV 8.6 fl (7.5-11.1) 12/04/18 07:57 Absolute Neuts (auto) 6.2 K/mm3 (1.5-8.0) 12/04/18 07:57 Neutrophils % 71.9 % (42.8-82.8) 12/04/18 07:57 Lymphocytes % 17.6 % (8-40) 12/04/18 07:57 Monocytes % 8.7 % (3.8-10.2) 12/04/18 07:57 Eosinophils % 1.4 % (0-4.5) 12/04/18 07:57 Basophils % 0.4 % (0-2.0) 12/04/18 07:57 Nucleated RBC % 0 % (0-0) 12/04/18 07:57 Assessment/Plan 33 yo PPD # 2 sp , afebrile, vital signs stable, asymptomatic anemia, stable for discharge home today 1. Patient stable for discharge home today. 2. Patient encouraged to contact MD for: - Severe pain not controlled by oral pain medication - Fevers or chills - Nausea or vomiting, intolerance of oral intake 3. Patient to follow up in office in 4-6 weeks for visit
[2018-12-05] MEDS: PRENATAL VITAMINS W/ FOLIC ACID TABLET (FP) PO SCH (09:35)
[2018-12-05] MEDS: FERROUS SO4 325 MG TABLET (FP) PO SCH (09:35)
[2018-12-05 11:43] VITALS: BP 119/63; PULSE 73; TEMP 98.8
== END 2018-12-05 13:00 | disposition home or self-care (01) | DRG 807 ==
LOC: JLDR 08:25 → J3W 12-03 06:37
PROVIDERS: ADMIT Obstetrics & Gynecology; ATTEND Obstetrics & Gynecology
PROC: 10E0XZZ Delivery of Products of Conception, External Approach (ICD-10-PCS; principal; 2018-12-03)
PROC: 0W8NXZZ Division of Female Perineum, External Approach (ICD-10-PCS; 2018-12-03)
DX: O48.0 Post-term pregnancy (principal); Z37.0 Single live birth; O69.81X0 Labor and delivery complicated by cord around neck, without compression, not applicable or unspecified; O99.824 Streptococcus B carrier state complicating childbirth; O70.0 First degree perineal laceration during delivery; Z3A.40 40 weeks gestation of pregnancy
CPT/HCPCS: 36415; 59409; 80048; 85025; 85610; 85730; 86593; 86850; 86900; 86901; 87389